=== PATIENT | male | born 1990 | race Caucasian/White ===

== ENCOUNTER 2023-02-06 12:25 | Outpatient (OUT) | payer OTHER, SELFPAY | END 2023-02-06 12:26 | disposition home or self-care (01) | LOC: LAB 12:29 | PROVIDERS: PCP Family Medicine; Visit Provider Family Medicine | DX: J01.90 Acute sinusitis, unspecified (principal) | CPT/HCPCS: 87070; 87150 ==

== ENCOUNTER 2024-11-17 07:45 | Outpatient (OUT) | payer OTHER, SELFPAY ==
--- OUTSIDE RECORDS SUMMARY | 2017-05-19 09:00 | XMS_ITS | Continuity of Care Document ---
Author Organization [employer] [facility] [place] [address] Phone Care Team Providers Care Extermination Supervisor Name Role Phone Washington Ayala MD Unavailable [...] Longer Active Procedures Procedure Date OFFICE/OUTPATIENT VISIT, [facility] Advance Directives Directive Yes / No Effective Date File Name No Information Encounters Encounter Description Practice Location Reason(s) For Visit Diagnoses Date Provider Providers Copied on Encounter OFFICE/OUTPAT IENT VISIT, [facility] [employer] [facility], [address], [place], [id number], tel:[phone] [facility] establishment (chief complaint) Acute recurrent pansinusitis 8 Jamie Delarosa. [address] [place], [address], [place]. tel:[phone] Referring Provider: Washington Castro, [address] [place], [address]. 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 Functional Status Date Functional Assessmen [...]
--- OUTSIDE RECORDS SUMMARY | 2024-11-15 07:15 | XMS_ITS ---
Author Organization [facility] [place] Address [address] [place] [address] Care Team Providers Care Insulating Machine Operator Name Role Phone Lucas Ledesma Primary Care Provider [phone] Allergies No Known Allergies REASON FOR VISIT Presents to office alone. Woke yesterday am with elbow being warm, swollen and painful, Establishedpatient but not seen in a few years Medications Medication SIG (Take, Route, Frequency, Duration) Notes Start Date End Date Status Cefdinir 300 MG 2 capsule Orally onc e a day for 10 days 11/15/2024 Active predniSONE 20 MG 3 tablets Orally Onc e a day for 5 days 11/15/2024 Active Doxycycline Monohydrate 100 MG 1 capsule Orally bid for 10 days 11/15/2024 Active Social History Tobacco Use: Social History Observation Description Date Details (start date - stop date) Never Smoker NA - NA Tobacco Control (Standard) Question Answer Notes Tobacco use: Nonsmoker AUDIT-C (Standard) Question Answer Notes Did you have a drink containing alcohol in the p ast year? No Points 0 Interpretation Negative Problems Problem Type SNOMED Code ICD Code Onset Dates Problem Status W/U Status Risk Notes Problem Bursitis (M71.9) Active confirmed Problem Well adult (093914758) Well adult (Z00.00) Active confirmed Vital Signs Weight 189.4 lbs 11/15/2024 Height 67 in 11/15/2024 Blood pressure systolic 118 mm Hg 11/16/19 25 Blood pressure diastolic 70 mm Hg 025 BMI 29.66 kg/m2 11/15/2024 Encounters Encounter Location Date Provider Diagnosis [facility] [address] [place] [address] 11/15/2024 Lucas Hopurnima Bursitis M71.9 and Well adult Z00.00 Assessments Encounter Date Diagnosis (ICD Code) Assessment Notes Treatment Notes Treatment Clinical Notes Section Notes 11/15/2024 Bursitis (ICD-10 - M71.9) 11/15/2024 Well adult (ICD-10 - Z00.00) Plan Of Treatment Medication Medication Name Sig Start Date Stop Date Notes Cefdinir 300 MG 2 capsule Orally onc e a day for 10 days 11/15/2024 predniSONE 20 MG 3 tablets Orally Onc e a day for 5 days 11/15/2024 Doxycycline Monohydrate 100 MG 1 capsule Orally bid for 10 days 11/15/2024 Pending Test Test Name Order Date HEMOGLOBIN A1C (GLYCO) 11/15/2024 INSULIN, TOTAL 11/15/2024 LIPID PANEL (CHOL/TRIG/HDL/LDL) 11/16/19 25 URIC ACID 11/15/2024 THYROID PANEL (T4/TSH/FREE T3) 5 CMP (COMP MET GASTELUM) w/eGFR CKD-EPI 2024 CBC WITH DIFF 11/15/2024 Progress Notes * MONICADarwDOB:1990 (34 yo M)Acc No.[id number]:11/15/2024 New Patient Patient: Haroon POLK Provider: Gloria Ledesma ([facility])MD :1990 A ge:34 Y S ex:Male Date:11/15/2024 Address:[address] [place], [place] [id number] Check In:11:17 AM ESTCheck O ut:12:04 PM EST Subjective: * Chief Complaints: * P resents to office alone. Woke yesterday am with elbow being warm, swollen and painfulEstablished patient but not seen in a few years * HPI: D epression Screening: PHQ-2 (2015 Edition) L ittle interest or pleasure in doing things??Not at all F eeling down, depressed, or hopeless? N ot at all T otal Score 0 no injry - works out alot - no repetitive and no injury. * Active Problem List M71.9 Bursitis Modified On:11/15/2024W/U Status:confirmed Z00.00 Well adult Modified On:11/15/2024W/U Status:confirmed * Medical History: * Surgical History: K nee scope (left) Inguinal hernia repair (right) * Hospitalization/Major Diagno stic Procedure: * Family History: F ather: alive. M other: alive. 4 sister(s) . . * Social History: T obacco Use: T obacco Control (Standard) T obacco use: N onsmoker D rug/Alcohol: A CAILIN-C (Standard) D id you have a drink containing alcohol in the past year? N o P oints 0 I nterpretation N egative * Medications: N one * Allergies: N .K.D.A.no[Allergies Verified] Objective: * Vitals: W t:189.4lbs, Ht: 67 in, BP:118/70mm Hg, BMI:29.66Index, Ht-cm: 170.18 cm, Wt-k.91 kg. * Examination: A bdomen Exam:: e lbow bursitis - red, warm - tender. Assessment: * Assessment: 1. B ursitis - M71.9 (Primary) 2 . W ell adult - Z00.00 Plan: * Treatment: 2. W ell adult L AB: HEMOGLOBIN A1C (GLYCO) (Collection Date & Time - 11/15/2024 12:02 PM) L AB: INSULIN, TOTAL (Collection Date & Time - 11/15/2024 12:02 PM) L AB: LIPID PANEL (CHOL/TRIG/HDL/LDL) (Collection Date & Time - 11/15/2024 12:02 PM) L AB: URIC ACID (Collection Date & Time - 11/15/2024 12:02 PM) L AB: THYROID PANEL (T4/TSH/FREE T3) (Collection Date & Time - 11/15/2024 12:02 PM) L AB: CMP (COMP MET GASTELUM) w/eGFR CKD-EPI (Collection Date & Time - 11/15/2024 12:02 PM) L AB: CBC WITH DIFF (Collection Date & Time - 11/15/2024 12:02 PM) * Procedure Codes: * * Sign off status: Completed Visit Status: C HK (Check Out) true * Provider: Gloria Ledesma ([facility])MD Date: 0 11/15/2024 Generated for Stephen gomez/Crista/Nachoitting on: 0 11/17/2024 07:50 AM EDT History and Physical Notes * HPI (History of Present Illness) Category Sub-Category Detail Notes Category Not es Depression Screening PHQ-2 (2015 Edition) Little interest or pleasure in doing things?: Not at all no injry - works out alot - no repetitive and no injury Feeling down, depressed, or hopeless?: N ot at all Total Score: 0 Examination Category Sub-Category Detail Notes Category Not es Abdomen Exam: elbow bursitis - red, warm - tender
--- OUTSIDE RECORDS SUMMARY | 2024-11-17 07:50 | XMS_ITS | Clinical Summary ---
Author Organization [facility] Address [address] [place], [place] [address] Care Team Providers Care Mussel Farmer Name Role Phone Unavailable Primary Care Provider Unavailabl e Social History Tobacco Use Types Packs/Day Years Used Date Smoking Tobacco: Never Assessed Sex and Gender Information Value Date Recorded Sex Assigned at Not on file Legal Sex Male 1:45 PM EDT Gender Identity Not on file Sexual Orientation Not on file Plan of Treatment Health Maintenance Due Date Last Done Comments Anxiety Screening 08/12/2007 Depression Screening 08/12/2007 HIV Screening 08/12/2007 Hepatitis C Screening 08/12/2007 DTaP,Tdap,Td Vaccine (1 - Tdap) 2008 Hepatitis B Vaccine (1 of 3 - 19+ 3-dose series) 08/11 Covid-19 Vaccine (2023- season) 2024 Lipid Screening 2024 Influenza Vaccine (#1) 2025 Insurance [facility] PPO
--- OUTSIDE RECORDS SUMMARY | 2024-11-17 07:50 | XMS_ITS | Patient Health Record ---
Author Organization [facility] Address [address] [place] [address] Care Team Providers Care Energy Trader Name Role Phone Hudson Coyne Unavailable [phone] Allergies No Known Allergies Reason For Referral No Information Medications Medication SIG (Take, Route, Frequency, Duration) Notes Start Date End Date Status None Active Social History Tobacco Use: Social History Observation Description Date Details (start date - stop date) Never Smoker NA - NA Smoking History Question Answer Notes Smoking Status NonSmoker Problems Problem Type SNOMED Code ICD Code Onset Dates Problem Status W/U Status Risk Notes Problem [id number] Left hand pain (M79.642) Active confirmed Problem [id number] Local infection of the skin and subcutaneous tissue, unspecified (L08.9) Active confirmed Problem [id number] Abrasion of le ft middle finger, initial encounter (S60.413A) Active confirmed Plan Of Treatment No Information Insurance Providers Payer Name Payer Address Payer Phone Subscriber Number Group Number Insured Name Patient Relationship to Insured Coverage Start Date Coverage End Date Medical [facility] Randell Irving [address] [place] [id number] VALERY ANDERSON Self - patient is the insured Medical (General) History Surgical History Surgery Date(Month/Year) Sports Hernia Repair 09/03/2015
--- OUTSIDE RECORDS SUMMARY | 2024-11-17 07:50 | XMS_ITS | Clinical Summary ---
Author Organization [facility] Address [address] [email or web address] [address] Care Team Providers Care Sheep Herder Name Role Phone Xavier Ledesma MD Primary Care Provider [phone] Allergies No known active allergies Medications amoxicillin-cla vulanate (AUGMENTIN) 875-125 MG per tablet 1 tablet Orally every 12 hrs for 10 day(s) 3 Active pseudoephedrine (SUDAFED CONGESTION) 30 MG tablet Take 2 tablets by mouth every 4 hours as needed for Congestion Active ibuprofen (ADVIL;MOTRIN) 800 MG tablet Take 1 tablet by mouth every 6 hours as needed for Pain Active Social History Tobacco Use Types Packs/Day Years Used Date Smoking Tobacco: Never Smokeless Tobacco: Never Tobacco Cessation:Counseling Given: Not Answered Alcohol Use Standard Drinks/Week Comments Never 0 (1 standard drink = 0.6 oz pur e alcohol) AUDIT-C Answer Date Recorded Q1: How often do you have a drink containing alcohol? Never 02/09/2023 Q2: How many drinks containi ng alcohol do you have on a typical day when you are drinking? Patient does not drink Q3: How often do you have si x or more drinks on one occasion? Never 02/09/2023 Interpersonal Safety Domain Source: IP Abuse Scr eening Answer Date Recorded How often does anyone, eduardo sorensen family and friends, physically hurt you? Not on file 02/09/2023 How often does anyone, eduardo sorensen family and friends, scream or curse at you? Not on file 02/09/2023 How often does anyone, eduardo sorensen family and friends, insult or talk down to you? Not on file 02/09/2023 How often does anyone, inclavtar sorensen family and friends, threaten you with harm? Not on file 02/09/2023 Read-Only, Retired: Physical Abuse Denies 02/09/2023 Read-Only, Retired: Verbal Abuse Denies 02/09/2023 Read-Only, Retired: Emotional abuse Denies 02/09/2023 Read-Only, Retired: Financial Abuse Denies 02/09/2023 Read-Only, Retired: Sexual abuse Denies 02/09/2023 Sex and Gender Information Value Date Recorded Sex Assigned at Not on file Legal Sex Male 5:07 PM EDT Gender Identity Not on file Sexual Orientation Not on file Last Filed Vital Signs Vital Sign Reading Time Taken Comments Blood Pressure 124/87 02/09/2023 4:30 PM EDT Pulse 92 02/09/2023 1:19 PM EDT Temperature 36.7 C (98 F) 02/09/2023 1:19 PM EDT Respiratory Rate 16 02/09/2023 1:19 PM EDT Oxygen Saturation 98% 02/09/2023 4:30 PM EDT Inhaled Oxygen Concentration - - Weight 77.1 kg (170 lb) 02/09/2023 1:19 PM EDT Height 170.2 cm (5' 7 ) 02/09/2023 1:19 PM EDT Body Mass Index 26.63 02/09/2023 1:19 PM EDT Plan of Treatment Health Maintenance Due Date Last Done Comments DTaP/Tdap/Td vaccine (6 - Tdap) 2000 01/27/1995, 08/16/1991, 03/30/1990, Additional history exists Depression Screen 2001 Varicella vaccine (1 of 2 - 13+ 2-dose series) 2002 HIV screen 2004 Hepatitis C screen 08/12/2007 Hepatitis B vaccine (1 of 3 - 19+ 3-dose series) 2008 COVID-19 Vaccine ( - 2023- season) 2024 Flu vaccine (#1) 12/10/2024 Hib vaccine Completed 11/16/1990 Polio vaccine Completed 01/27/1995, 10/1991, 1989, Additional history exists HPV vaccine Aged Out No longer eligi ble based on patient's age to complete this topic Hepatitis A vaccine Aged Out No longe r eligible based on patient's age to complete this topic Meningococcal (ACWY) vaccine Aged Out No longer eligible based on patient's age to complete this topic Meningococcal B vaccine Aged Out No l onger eligible based on patient's age to complete this topic Pneumococcal 0-49 years Vaccine Aged Out No longer eligible based on patient's age to complete this topic Insurance [employer] Care Teams Sheep Herder Relationship Specialty Start Date End Date Xavier Ledesma MD [address] [place] [address] PCP - General Family Medicine 08/31/20
--- OUTSIDE RECORDS SUMMARY | 2024-11-17 07:50 | XMS_ITS | Encounter Summary ---
Author Organization [facility] Address [address] [place] [address] Care Team Providers Care Routeman Name Role Phone Xavier Ledesma MD Primary Care Provider [phone] Reason for Referral * Imaging (Routine) - Closed Specialty Diagnoses / Procedures Referred By Contac t Referred To Contact Radiology Diagnoses Sports hernia, initial encounter Procedures MRI PELVIS WO CONTRAST Francis Rawls MD [address] [place] [address] Phone: tel: fax: Referral ID Status Reason Start Date Expiration Date Visits Re quested Visits Authorized [id number] Closed 08/16/2020 02/12/2021 1 1 Encounter Details Date Type Department Care Team (Latest Contact Info) Description 08/30/2020 Transcribe Orders [facility] [address] [place] [address] Francis Rawls MD [address] [place] [address] [place] [address] Sports hernia, initial encounter (Primary Dx) Social History Tobacco Use Types Packs/Day Years Used Date Smoking Tobacco: Never Assessed Sex and Gender Information Value Date Recorded Sex Assigned at Not on file Legal Sex Male 5:07 PM EDT Gender Identity Not on file Sexual Orientation Not on file documented as of this encounter Plan of Treatment Not on file documented as of this encounter Results * MRI PELVIS WO CONTRAST (09/12/2020 2:40 PM EDT) Anatomical Region Laterality Modality Pelvis, Hip Magnetic Resonan ce 09/12/2020 2:49 PM EDT Impressions 09/12/2020 10:18 PM EDT Mild thickening along the course of the right external oblique aponeurosis and anterior aspect of the inguinal canal proximal to its insertion on the rectus sheath. No associated edema. This likely reflects previous surgical intervention. No recurrent tear of the prepubic aponeurosis or abductor tendon origins. Normal appearance of the pubic symphysis. Narrative 09/12/2020 10:18 PM EDT EXAMINATION: MRI OF THE PELVIS WITHOUT CONTRAST, 09/12/2020 2:34 pm TECHNIQUE: Multiplanar multisequence MRI of the pelvis was performed without the administration of intravenous contrast. COMPARISON: None HISTORY: ORDERING SYSTEM PROVIDED HISTORY: Sports hernia, initial encounter FINDINGS: The pubic symphysis is normal in appearance. No subchondral change or osteophytosis. No joint effusion. The bilateral proximal adductor tendons are intact and normal in appearance. Normal insertion of the bilateral rectus abdominus muscles. There is mild thickening along the course of the right external oblique aponeurosis and anterior aspect of the inguinal canal. No associated edema. The bilateral proximal adductor and pectineus muscles are normal in appearance. The remaining visualized musculature is also within normal limits. No inguinal hernia. No inguinal or pelvic lymphadenopathy identified. The bilateral hips are normal in appearance. Mild right sacroiliac degenerative changes. The left sacroiliac joint is unremarkable. The visualized lower lumbar spine is unremarkable. No fracture or dislocation. No suspicious marrow space-occupying lesion. The soft tissue contents of the pelvis are unremarkable. The bilateral sciatic nerves are normal in appearance. No abnormal soft tissue mass or fluid collection. Procedure Note Kobi Whitley MD - 09/12/2020 EXAMINATION: MRI OF THE PELVIS WITHOUT CONTRAST, 09/12/2020 2:34 pm TECHNIQUE: Multiplanar multisequence MRI of the pelvis was performed without the administration of intravenous contrast. COMPARISON: None HISTORY: ORDERING SYSTEM PROVIDED HISTORY: Sports hernia, initial encounter FINDINGS: The pubic symphysis is normal in appearance. No subchondral change or osteophytosis. No joint effusion. The bilateral proximal adductortendons are intact and normal in appearance. Normal insertion of the bilateral rectus abdominus muscles. There is mild thickening along the course ofthe right external oblique aponeurosis and anterior aspect of the inguinalcanal. No associated edema. The bilateral proximal adductor and pectineusmuscles are normal in appearance. The remaining visualized musculature is also within normal limits. No inguinal hernia. No inguinal or pelvic lymphadenopathy identified. The bilateral hips are normal in appearance. Mild right sacroiliac degenerative changes. The left sacroiliac joint is unremarkable. The visualized lower lumbar spine is unremarkable. No fracture ordislocation. No suspicious marrow space-occupying lesion. The soft tissue contents of the pelvis are unremarkable. The bilateral sciatic nerves are normal in appearance. No abnormal soft tissue massor fluid collection. IMPRESSION: Mild thickening along the course of the right external obliqueaponeurosis and anterior aspect of the inguinal canal proximal to its insertion onthe rectus sheath. No associated edema. This likely reflects previoussurgical intervention. No recurrent tear of the prepubic aponeurosis or abductor tendon origins. Normal appearance of the pubic symphysis. Francis Rawls MD IMG MRI ORDERABLES Final Result documented in this encounter Visit Diagnoses Diagnosis Sports hernia, initial encounter- Primary Sports hernia, initial encounter documented in this encounter Care Teams Routeman Relationship Specialty Start Date End Date Xavier Ledesma MD [address] [place] [address] PCP - General Family Medicine 08/31/20 documented as of this encounter
--- OUTSIDE RECORDS SUMMARY | 2024-11-17 07:50 | XMS_ITS | Clinical Summary ---
Author Organization [facility] Address [address] [place] [address] [place] [address] Care Team Providers Care It Specialist Name Role Phone Xavier Ledesma MD Primary Care Provider [phone] Allergies No known active allergies Medications DULoxetine (Cymbalta) [address] Particles capsule DR Take 1 capsule by mouth daily as needed. 30 capsule 2 2 Active Additional Information Patient not taking.Reported on 04/29/2022 methylPREDNIsolo ne 4 MG Tab Therapy Pack tabletIndication s:Left knee pain, unspecified chronicity,Tear of medial meniscus of left knee, unspecified tear type, unspecified whether old or current tear, initial encounter follow package directions 21 tablet 2 Active hydroCODone-acet aminophen 5-325 MG tabletIndication s:S/P left knee arthroscopy 1-2 tabs PO q4-6 hours PRN pain 30 tablet 2 Active Active Problems No known active problems Social History Tobacco Use Types Packs/Day Years Used Date Smoking Tobacco: Never Smokeless Tobacco: Never Alcohol Use Standard Drinks/Week Comments Never 0 (1 standard drink = 0.6 oz pur e alcohol) Sex and Gender Information Value Date Recorded Sex Assigned at Not on file Legal Sex Male 1:25 PM EST Gender Identity Not on file Sexual Orientation Not on file Last Filed Vital Signs Vital Sign Reading Time Taken Comments Blood Pressure 144/73 05/02/2022 10:25 AM EST Pulse 99 05/02/2022 10:25 AM EST Temperature 37.6 C (99.7 F) 09/02/2022 1:13 PM EDT Respiratory Rate 16 05/02/2022 10:25 AM EST Oxygen Saturation 97% 05/02/2022 10:25 AM EST Inhaled Oxygen Concentration - - Weight 79.4 kg (175 lb) 09/02/2022 1:13 PM EDT Height 170.2 cm (5' 7 ) 09/02/2022 1:13 PM EDT Body Mass Index 27.41 09/02/2022 1:13 PM EDT Plan of Treatment Health Maintenance Due Date Last Done Comments HEPATITIS C VIRUS SCREENING 1989 HIV SCREENING DISCUSSION 2004 HEP B VACCINE (1 of 3 - 19+ 3-dose series) 2008 TDAP (ADULT) 2008 TETANUS 02/09/2014 02/10/2004 COVID-19 VACCINE (2023-2 5 season) 2024 INFLUENZA VACCINE (Season Ended) 2025 HPV VACCINE Aged Out No longer eligi ble based on patient's age to complete this topic PNEUMOCOCCAL VACCINE SERIES Aged Out No longer eligible based on patient's age to complete this topic Insurance MMO Care Teams It Specialist Relationship Specialty Start Date End Date Xavier Ledesma MD PCP - General Family Medicine 06/20/20
--- OUTSIDE RECORDS SUMMARY | 2024-11-17 07:50 | XMS_ITS | Clinical Summary ---
Author Organization [facility] Address [address] [place] [address] Care Team Providers Care Knife Blade Polisher Name Role Phone Xavier Ledesma MD Primary Care Provider [phone] Allergies No known active allergies Medications pseudoephedrine (Sudafed) 30 MG tablet Take 60 mg by mouth every 6 (six) hours if needed. Active cetirizine-pseudoep hedrine (ZyrTEC-D) 5-120 MG 12 hr tabletIndications:C hronic maxillary sinusitis Take 1 tablet by mouth in the morning and 1 tablet before bedtime. 60 tablet 11 3 Active loratadine (Claritin Reditabs) 10 MG disintegrating tablet Take 10 mg by mouth in the morning. 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 05/27/2023 Immunizations Immunization Administration Dates Next Due DTaP, Unspecified 01/27/1995, 2,03/30/1990,1989, 990 HiB, unspecified 11/16/1990 MMR 12/26/2004,11/16/1990 Polio, Unspecified 01/27/1995,08/16/1991, 990,1989 Tetanus toxoid, adsorbed 02/10/2004 Family History Medical History Relation Name Comments Heart disease Father Hypertension Father No Known Problems Mother Relation Name Status Comments Father Alive Mother Alive Social History Tobacco Use Types Packs/Day Years Used Date Smoking Tobacco: Never Smokeless Tobacco: Never Tobacco Cessation:Counseling Given: Not Answered Alcohol Use Standard Drinks/Week Comments Never 0 (1 standard drink = 0.6 oz pur e alcohol) Sex and Gender Information Value Date Recorded Sex Assigned at Not on file Legal Sex Male 8:25 PM EDT Gender Identity Not on file Sexual Orientation Not on file Last Filed Vital Signs Vital Sign Reading Time Taken Comments Blood Pressure 132/89 05/27/2023 10:15 AM EST Pulse - - Temperature - - Respiratory Rate - - Oxygen Saturation - - Inhaled Oxygen Concentration - - Weight 82.1 kg (181 lb) 05/27/2023 10:15 AM EST Height 170.2 cm (5' 7 ) 05/27/2023 10:15 AM EST Body Mass Index 28.35 05/27/2023 10:15 AM EST Plan of Treatment Not on file Insurance [employer] Care Teams Knife Blade Polisher Relationship Specialty Start Date End Date Xavier Ledesma MD PCP - General Family Medicine 02/10/23
--- OUTSIDE RECORDS SUMMARY | 2024-11-17 07:50 | XMS_ITS | Encounter Summary ---
Author Organization [facility] Address [address] [place] [address] Care Team Providers Care Oven Stripper Name Role Phone Xavier Ledesma MD Primary Care Provider [phone] Encounter Details Date Type Department Care Team (Late st Contact Info) Description 03/17/2023 Clinisync Result Encounter [facility] External Department Unsolicited Krystyna Lindsay MD [address] [facility] [address] [place] [address] Social History Tobacco Use Types Packs/Day Years [...] on file documented as of this encounter Procedures Procedure Name Priority Date/Time Associated Diagnosis Comments CT MAXILLOFACIAL W/O CONTRAST 03/17/2023 10:03 AM EST documented in this encounter Results * CT MAXILLOFACIAL W/O CONTRAST (03/17/2023 10:03 AM EST) Anatomical Region Laterality Modality Other 03/17/2023 10:0 3 AM EST Narrative 03/18/2023 9:01 AM EST Exam Date/Time: 03/17/2023 10:21 EST Reason for Exam: J32.4 Report IMPRESSION: THE PARANASAL SINUSES ARE WELL AERATED. EXAM: CT Maxillofacial w/o Contrast DATE: 03/17/2023 10:03 AM CLINICAL HISTORY: J32.4. COMPARISON: None available. TECHNIQUE: Multiple images axial images were obtained without contrast administration. 3-D sagittal and coronal reconstructions were performed. All CT scans at this facility use dose modulation, iterative reconstruction, and/or weight based dosing when appropriate to reduce radiation dose to as low as reasonably achievable. SINUS CT FINDINGS: The visualized intracranial portions are within normal limits. The orbits demonstrate no intra or extraconal lesions, the globes are intact. There is no fracture or subluxation. There are no lytic or sclerotic bone lesions. The frontal sinuses are well aerated. The ethmoid sinuses are within normal limits. The sphenoid sinuses are unremarkable. The maxillary sinuses are intact. The right ostiomeatal complex is patent but narrowed due to the deviation of the nasal septum. The left side is patent. There is severe deviation of nasal septum towards the right side with a small diffuse spur. There is no pneumatization of the turbinate bones. The visualized portions of the mastoid air cells and middle ear spaces are within normal limits. The soft tissues are within normal limits. Report Ordering Provider: Krystyna Lindsay FINAL REPORT Dictated: 03/18/2023 8:58 am Jacobo Krishna MD, V. Signed (Electronic Signature): 03/18/2023 8:58 am Signed by: Jacobo Krishna MD, V. Transcribed by: CHRIS Technologist: NISHANT Procedure Note Radiology, Radiologist, - 03/18/2023 Exam Date/Time: 03/17/2023 10:21 EST Reason for Exam: J32.4 Report IMPRESSION: THE PARANASAL SINUSES ARE WELL AERATED. EXAM: CT Maxillofacial w/o Contrast DATE: 03/17/2023 10:03 AM CLINICAL HISTORY: J32.4. COMPARISON: None available. TECHNIQUE: Multiple images axial images were obtained without contrast administration. 3-D sagittal and coronal reconstructions were performed. All CT scans at this facility use dose modulation, iterativereconstruction, and/or weight based dosing when appropriate to reduce radiation dose to as lowas reasonably achievable. SINUS CT FINDINGS: The visualized intracranial portions are within normal limits. The orbits demonstrate no intra or extraconal lesions, the globes areintact. There is no fracture or subluxation. There are no lytic or sclerotic bonelesions. The frontal sinuses are well aerated. The ethmoid sinuses are within normal limits. The sphenoid sinuses are unremarkable. The maxillary sinuses are intact. The right ostiomeatal complex is patent but narrowed due to the deviationof the nasal septum. The left side is patent. There is severe deviation of nasal septum towards the right side with asmall diffuse spur. There is no pneumatization of the turbinate bones. The visualized portions of the mastoid air cells and middle ear spaces arewithin normal limits. The soft tissues are within normal limits. Report Ordering Provider: Krystyna Lindsay FINAL REPORT Dictated: 03/18/2023 8:58 am Jacobo Krishna MD, V. Signed (Electronic Signature): 03/18/2023 8:58 am Signed by: Jacobo Krishna MD, V. Transcribed by: CHRIS Technologist: NISHANT Krystyna Lindsay MD [facility] Final Resul t documented in this encounter Visit Diagnoses Not on filedocumented in this encounter Care Teams Oven Stripper Relationship Specialty Start Date End Date Xavier Ledesma MD PCP - General Family Medicine 02/10/23 documented as of this encounter
--- OUTSIDE RECORDS SUMMARY | 2024-11-17 07:50 | XMS_ITS | Patient Health Record ---
Author Organization [facility] [place] Address [address] [place] [address] Care Team Providers Care Psychotherapist Counselor Name Role Phone Lucas Ledesma Primary Care Provider [phone] Allergies No Known Allergies Reason For Referral [...] Problem Status W/U Status Risk Notes Problem Well adult (236942558) Well adult (Z00.00) Active confirmed Problem Bursitis (M71.9) Active confirmed Vital Signs Blood pressure diastolic 70 mm Hg 11/15/2024 Height 67 in 11/15/2024 Blood pressure systolic 118 mm Hg 11/15/2024 Weight 189.4 lbs 11/15/2024 BMI 29.66 kg/m2 11/15/2024 Encounters Encounter Location Date Provider Diagnosis [facility] [address] [place] [address] 11/15/2024 Lucas Ledesma Bursitis M71.9 and Well adult Z00.00 Assessments Encounter Date Diagnosis (ICD Code) Assessment Notes Treatment Notes Treatment Clinical Notes Section Notes 11/15/2024 Bursitis (ICD-10 - M71.9) 11/15/2024 Well adult (ICD-10 - Z00.00) Plan Of Treatment Pending Test Test Name Order Date HEMOGLOBIN A1C (GLYCO) 11/15/2024 INSULIN, TOTAL 11/15/2024 LIPID PANEL (CHOL/TRIG/HDL/LDL) 11/16/19 25 URIC ACID 11/15/2024 THYROID PANEL (T4/TSH/FREE T3) 5 CMP (COMP MET GASTELUM) w/eGFR CKD-EPI 2024 CBC WITH DIFF 11/15/2024 Insurance Providers Payer Name Payer Address Payer Phone Subscriber Number Group Number Insured Name Patient Relationship to Insured Coverage Start Date Coverage End Date [facility] [address] [place], [place] [phone] [id number] Haroon Titus Self - patient is the insured Medical (General) History Surgical History Surgery Date(Month/Year) Inguinal hernia repair (right) Knee scope (left)
[2024-11-17 08:05] LABS: Hematocrit 39.4 % (42.0-54.0); Hemoglobin 14.2 g/dL (14.0-18.0); Immature Granulocytes Abs Auto 0.07 10^3/uL (0.00-0.03); Immature Granulocytes Pct Auto 0.5 % (0.0-0.5); Lymphocytes Absolute Auto 1.9 10^3/uL (1.2-3.8); Mean Corpuscular HGB Conc 36.0 g/dL (29.9-35.2); Mean Corpuscular Hemoglobin 30.3 pg (25.9-34.0); Mean Corpuscular Volume 84.0 fL (80.0-94.0); Platelet Count 332 10^3/uL (150-450); Red Blood Count 4.69 10^6/uL (4.70-6.10); White Blood Count 14.4 10^3/uL (4.0-11.0)
[2024-11-17 08:58] LABS: Alanine Aminotransferase 45 U/L (16-63); Albumin Globulin Ratio 1.3; Albumin Level 4.3 g/dL (3.4-5.0); Alkaline Phosphatase 59 U/L (46-116); Anion Gap 16.2; Aspartate Amino Transferase 36 U/L (15-37); Blood Urea Nitrogen 24.0 mg/dL (7.0-18.0); Calcium 9.2 mg/dL (8.5-10.1); Carbon Dioxide 27.2 mmol/L (21.0-32.0); Chloride 102 mmol/L (98-107); Cholesterol 176 mg/dL (<=200); Estimated GFR (African America >60 (>=60 mL/min/1.73m^2); Estimated GFR (Non-African Ame >60 (>=60 mL/min/1.73m^2); Free T3 2.96 pg/mL (2.18-3.98); Globulin 3.2 g/dL; Glucose 109 mg/dL (74-106); HDL Cholesterol 70 mg/dL (40-60); Potassium 4.4 mmol/L (3.5-5.1); Sodium 141 mmol/L (136-145); Thyroid Stimulating Hormone 1.131 uIU/mL (0.358-3.740); Total Protein 7.5 g/dL (6.4-8.2); Triglycerides 42 mg/dL (<=150); Uric Acid 6.4 mg/dL (3.5-7.2); VLDL CHOLESTEROL 8.4 mg/dL
== END 2024-11-17 07:46 | disposition home or self-care (01) ==
LOC: LAB 07:48
PROVIDERS: PCP Family Medicine; Visit Provider Family Medicine
DX: Z00.00 Encounter for general adult medical examination without abnormal findings (principal)
CPT/HCPCS: 36415; 80053; 80061; 83036; 83525; 84436; 84443; 84481; 84550; 85025

== ENCOUNTER 2024-11-25 11:29 | Outpatient (OUT) | payer OTHER, SELFPAY ==
--- OUTSIDE RECORDS SUMMARY | 2017-05-19 09:00 | XMS_ITS | Continuity of Care Document ---
Author Organization [facility] Address [place] [address] Phone Care Team Providers Care Hand I Blocker Name Role Phone Washington Ayala MD Unavailable Unavailable Allergies, Adverse Reactions, Alerts Substance Reaction Status Criticality No Known Allergies Active No Inform ation Medications Medication Instructions Dosage Effective Dates (start - stop) Status Comments fluticasone 50 mcg/actuation nasal spray,suspension inhale 2 sprays in each nostril every day - Active Zyrtec 10 mg tablet take 1 tablet by oral route every day 10 MG - Active azithromycin 250 mg tablet take 2 tablet by oral route every day for 1 day then 1 tablet (250 mg) by oral route once daily for 9 days - No Longer Active Procedures Procedure Date OFFICE/OUTPATIENT VISIT, [facility] Advance Directives Directive Yes / No Effective Date File Name No Information Encounters Encounter Description Practice Location Reason(s) For Visit Diagnoses Date Provider Providers Copied on Encounter OFFICE/OUTPAT IENT VISIT, [facility], [address], [place], [id number], tel:[phone] [facility] establishment (chief complaint) Acute recurrent pansinusitis [address] Jamie Delarosa. [address] [place], [address], [place]. tel:[phone] Referring Provider: Washington Castro, [address] [place], [address]. tel:[phone] Family History Family Member Type Diagnosis Age At Onset No Information Payers Payer name Insurance type Covered constitution party ID Authoriza tion(s) Blue Cross Blue Shield BL [id number] Social History Type Description Quantity Date Captured Comments Alcohol Use Details No Caffeine Use Details coffee Tobacco Use Status Never smoked tobacco 2017 Smoking Status Never smoker Non-Smoking Tobacco Use Details : No Details Available : No Details Available Sex Male Vital Signs Date / Time: Height Weight BMI Pulse Rate Blood Pressure Temperature Respiratory Rate Body Surface Area Head Circumference Head Circ. Percentile Wt./[place]. Percentile BMI percentile Pulse Ox Inhaled Ox 1:03 PM 67.00 in 81.647 kg (180.00 lbs) 28.1 9 kg/m eter (2) 73 /min 120/76 mm[Hg] 97.70 F 16 /min 96 % Chief Complaint And Reason For Visit From encounter dated '05/19/2017 13:00'. care establishment (chief complaint). Description: Has a sinus infection which is a yearly issue. Saw urgent care last week and sx measures were advised. Took a few leftover azithromycin and some better. Has been having sx for well over a week. Has a hx of chronic allergies and takes zyrtec year round. His biggest sx is pain and pressure behind his eyes and in his cheeks. Has nasal josé and d/c. The d/c is creamy. Has a slight cough. Advil cold and sinus helps some. 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 Reason For Referral Reason For Referral No Information Plan Of Treatment Date Type Action Status Goal Influenza vaccine. Due on Ja due Goal Tdap. Due on due History Of Present Illness Encounter Date Complaint History Of Prese nt Illness care establishment Has a sinus i nfection which is a yearly issue. Saw urgent care last week and sx measures were advised. Took a few leftover azithromycin and some better. Has been having sx for well over a week. Has a hx of chronic allergies and takes zyrtec year round. His biggest sx is pain and pressure behind his eyes and in his cheeks. Has nasal josé and d/c. The d/c is creamy. Has a slight cough. Advil cold and sinus helps some. 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 Functional Status Date Functional Assessmen t No Information Instructions Date Instruction Additional Infor reba Take the azithromyci n for 7-10 days. Use fluticasone nasal spray as directed daily and use afrin nasal spray for the next week. Follow up in 1 month Related to Acute recurrent pansinusitis Assessments Type Assessment Date assessment Acute recurrent pansinusitis May Patient Care Teams Name Effective Dates (start - stop) Status Members No Information
--- OUTSIDE RECORDS SUMMARY | 2024-11-17 14:56 | XMS_ITS ---
Author Organization [facility] [place] Address [address] [place] [address] Care Team Providers Care Machine Design Teacher Name Role Phone Lucas Ledesma Primary Care Provider REASON FOR VISIT lab results Problems Problem Type SNOMED Code ICD Code Onset Dates Problem Status W/U Status Risk Notes Problem Elevated WBC count (D72.829) Active confirmed Encounters Encounter Location Date Provider Diagnosis [facility] [address] [place] [address] 11/17/2024 Lucas Ledesma SOLA (acute kidney injury) N17.9 and Elevated WBC count D72.829 Assessments Encounter Date Diagnosis (ICD Code) Assessment Notes Treatment Notes Treatment Clinical Notes Section Notes 11/17/2024 SOLA (acute kidney injury) (ICD-10 - N17.9) 11/17/2024 Elevated WBC count (ICD-10 - D72.829) Plan Of Treatment Pending Test Test Name Order Date BMP w/GFR 11/17/2024 CBC AUTO DIFF 11/17/2024 Progress Notes * Shanda TITUSOB:1990 (34 yo M)Acc No.[id number]:11/17/2024 Patient: Haroon POLK :1990 A ge:34 Y S ex:Male Address:[address] [place] [address], [address] Subjective: * Chief Complaints: * L ab results * Medical History: * Surgical History: * Hospitalization/Major Diagno stic Procedure: * Medications: Objective: * Vitals: * Physical Examination: Assessment: * Assessment: 1. A KI (acute kidney injury) - N17.9 (Primary) 2 . E levated WBC count - D72.829 Plan: * Treatment: 2. E levated WBC count L AB: BMP w/GFR L AB: CBC AUTO DIFF * Procedure Codes: * true * Date: Generated for Stephen gomez/Crista/eThammadsmitting on: 0 11/25/2024 11:35 AM EDT
--- OUTSIDE RECORDS SUMMARY | 2024-11-22 06:45 | XMS_ITS ---
Author Organization [facility] [place] Address [address] [place] [address] Care Team Providers Care Minister Of Religion Name Role Phone Lucas Ledesma Primary Care Provider REASON FOR VISIT Presents to office alone for f/u on left elbow. Was starting to get better. Over the weekend started to swell and burn again. Does seem to have calmed down today Medications Medication SIG (Take, Route, Frequency, Duration) Notes Start Date End Date Status Cefdinir 300 MG 2 capsule Orally onc e a day for 10 days 11/15/2024 Active Doxycycline Monohydrate 100 MG 1 capsule Orally bid for 10 days 11/15/2024 Active predniSONE 10 MG 5 tabs per day for 3 days, 4 tabs per day for 3 ays, 3 tabs perday for 3 days, 2 tabs per day for 3 days, 1 tab a day for 3 days, 1/2 tab a day for 4 days Orally Once a day for 19 days 11/22/2024 Active Social History Tobacco Use: Social History Observation Description Date Details (start date - stop date) Never Smoker NA - NA Tobacco Control (Standard) Question Answer Notes Tobacco use: Nonsmoker AUDIT-C (Standard) Question Answer Notes Did you have a drink containing alcohol in the p ast year? No Points 0 Interpretation Negative Vital Signs Blood pressure systolic 118 mm Hg 11/23/19 25 Blood pressure diastolic 80 mm Hg 025 Height 67 in 11/22/2024 Weight 189.6 lbs 11/22/2024 BMI 29.69 kg/m2 11/22/2024 Encounters Encounter Location Date Provider Diagnosis [facility] [address] [place] [id number] 11/22/2024 Lucas Ledesma Bursitis M71.9 Assessments Encounter Date Diagnosis (ICD Code) Assessment Notes Treatment Notes Treatment Clinical Notes Section Notes 11/22/2024 Bursitis (ICD-10 - M71.9) Plan Of Treatment Medication Medication Name Sig Start Date Stop Date Notes predniSONE 10 MG 5 tabs per day for 3 days, 4 tabs per day for 3 ays, 3 tabs perday for 3 days, 2 tabs per day for 3 days, 1 tab a day for 3 days, 1/2 tab a day for 4 days Orally Once a day for 19 days 11/22/2024 Progress Notes * Dar TITUSwDOB:1990 (34 yo M)Acc No.[id number]:11/22/2024 Progress Note Patient: Haroon POLK Provider: Gloria Ledesma ([facility])MD :1990 A ge:34 Y S ex:Male Date:11/22/2024 Address:[address] [place], [place] [id number] Check In:10:47 AM ESTCheck O ut:11:41 AM EST Subjective: * Chief Complaints: * P resents to office alone for f/u on left elbow. Was starting to get better. Over the weekend started to swell and burn again. Does seem to have calmed down today * HPI: G eneral: was better - then yesterday much wowsre - warm - some better. * Active Problem List M71.9 Bursitis Modified On:11/15/2024W/U Status:confirmed Z00.00 Well adult Modified On:11/15/2024W/U Status:confirmed D72.829 Elevated WBC count Modified On:11/18/2024/U Status:confirmed * Medical History: * Surgical History: [...] 0 I nterpretation N egative * Medications: T akingCefdinir 300 MG Capsule 2 capsule Orally once a day Doxycycline Monohydrate 100 MG Capsule 1 capsule Orally bid Taking Cefdinir 300 MG Capsule 2 capsule Orally once a day Taking Doxycycline Monohydrate 100 MG Capsule 1 capsule Orally bid DiscontinuedpredniSONE 20 MG Tablet 3 tablets Orally Once a day Medication List reviewed and reconciled with the patientDiscontinued predniSONE 20 MG Tablet 3 tablets Orally Once a day Medication List reviewed and reconciled with the patient Objective: * Vitals: W t:189.6lbs, Ht: 67 in, BP:118/80mm Hg, BMI:29.69Index, Ht-cm: 170.18 cm, Wt-k kg. * Examination: A bdomen Exam:: L eft elbow iwth some swelling. Assessment: * Assessment: 1. B ursitis - M71.9 (Primary) Plan: * Treatment: * Procedure Codes: * Preventive Medicine: Screenings/Counseling: B NV ACTION PLAN Above Normal BMI Follow-up D ietary management education, guidance, and counseling See treatment section of progress note for complete details of management plan. * * Sign off status: Completed Visit Status: C HK (Check Out) true * Provider: Gloria Ledesma ([facility])MD Date: 0 11/22/2024 Generated for Stephen gomez/Crista/eTransmitting on: 11/25/2024 11:35 AM EDT History and Physical Notes * HPI (History of Present Illness) Category Sub-Category Detail Notes Category Not es General was better - th en yesterday much wowsre - warm - some better Examination Category Sub-Category Detail Notes Category Not es Abdomen Exam: Left elbow iwt h some swelling
--- OUTSIDE RECORDS SUMMARY | 2024-11-22 07:23 | XMS_ITS ---
Author Organization [facility] [place] Address [address] [place] [address] Care Team Providers Care Manager Of Development Name Role Phone Lucas Ledesma Primary Care Provider Reason For Referral Diagnosis 1 Bursitis (M71.9) Referral Organization [facility] Referring Provider First Name Lucas Referring Provider Last Name Callie Referring Provider [facility] icine Referred Provider Terell Lopez Referred Provider Specialty Orthopedic S urgery Referral Priority Routine REASON FOR VISIT Ortho Encounters Encounter Location Date Provider Diagnosis [facility] [address] [place] [address] 11/22/2024 Lucas Ledesma Bursitis M71.9 Assessments Encounter Date Diagnosis (ICD Code) Assessment Notes Treatment Notes Treatment Clinical Notes Section Notes 11/22/2024 Bursitis (ICD-10 - M71.9) Plan Of Treatment Referrals Referral Date Details 11/22/2024 11/22/2024Terell Progress Notes * Dar TITUSwDOB:1990 (34 yo M)Acc No.[id number]:11/22/2024 Patient: Dar POLKw :1990 A ge:34 Y S ex:Male Address:[address] [place] [address], [phone] Subjective: * Chief Complaints: * O rtho * Medical History: * Surgical History: * Hospitalization/Major Diagno stic Procedure: * Medications: Objective: * Vitals: * Physical Examination: Assessment: * Assessment: 1. B ursitis - M71.9 (Primary) Plan: * Treatment: * Procedure Codes: * true * Date: Generated for Stephen gomez/Crista/Nachoitting on: 0 11/25/2024 11:35 AM EDT Consultation Request Notes Referral Date Referring Provider Referred Provider Not es 11/22/2024 Lucas Ledesma Justin
--- OUTSIDE RECORDS SUMMARY | 2024-11-25 11:35 | XMS_ITS | Clinical Summary ---
Author Organization [facility] Address [address], [address] [place] [address] Care Team Providers Care Manufacturing Process Technician Name Role Phone Xavier Ledesma MD Primary Care Provider [phone] Allergies No known active allergies Medications amoxicillin-cla [...] does anyone, eduardo sorensen family and friends, threaten you with [...] 19+ 3-dose series) 2008 COVID-19 Vaccine ( season) 2024 Flu vaccine (#1) 12/10/2024 Hib [...] this topic Insurance [employer] Care Teams Manufacturing Process Technician Relationship Specialty Start Date End Date Xavier Ledesma MD [address] [place] [address] PCP - General Family Medicine 08/31/20
--- OUTSIDE RECORDS SUMMARY | 2024-11-25 11:35 | XMS_ITS | Clinical Summary ---
Author Organization [facility] Address [address] [place] [address] Care Team Providers Care Door Person Name Role Phone Xavier Ledesma MD Primary Care Provider [phone] Allergies No known active allergies Medications pseudoephedrine [...] on file Insurance [employer] Care Teams Door Person Relationship Specialty Start Date End Date Xavier Ledesma MD PCP - General Family Medicine 02/10/23
--- OUTSIDE RECORDS SUMMARY | 2024-11-25 11:35 | XMS_ITS | Clinical Summary ---
Author Organization [facility] Address [address] [place], [place] [id number] Care Team Providers Care Rotary Veneer Machine Operator Name Role Phone Unavailable Primary Care Provider [...] Screening 2024 Influenza Vaccine (#1) 2025 Insurance [facility] PPO
--- OUTSIDE RECORDS SUMMARY | 2024-11-25 11:35 | XMS_ITS | Patient Health Record ---
Author Organization [facility] Address [address] [place] [address] Care Team Providers Care Prevocational/Rehabilitation Counselor Name Role Phone Hudson Coyne Unavailable [phone] Allergies No Known Allergies Reason For Referral [...] Problem Status W/U Status Risk Notes Problem [id number] Left hand pain (M79.642) Active confirmed Problem [id number] Local infection of the skin and subcutaneous tissue, unspecified (L08.9) Active confirmed Problem [id number] Abrasion of le ft middle finger, initial encounter (S60.413A) Active confirmed Plan Of Treatment No Information Insurance Providers Payer Name Payer Address Payer Phone Subscriber Number Group Number Insured Name Patient Relationship to Insured Coverage Start Date Coverage End Date Medical [facility] Randell Irving [address] [place] [id number] VALERY ANDERSON Self - patient is the insured Medical (General) History Surgical History Surgery Date(Month/Year) Sports Hernia Repair 09/03/2015
--- OUTSIDE RECORDS SUMMARY | 2024-11-25 11:35 | XMS_ITS | Patient Health Record ---
Author Organization [facility] in [place] Address [address] [place] [address] Care Team Providers Care Back End Web Developer Name Role Phone Lucas Ledesma Primary Care Provider [phone] Allergies No Known Allergies Results Component Value Reference Range Notes CBC AUTO DIFF Reviewed date:11/17/2024 06:59:25 PM Interpretation: Performing Lab: Notes/Report: [facility] , White Blood Count 14.4 4.0-11.0 10 3/uL Red Blood Count 4.69 4.70-6.10 10 6/uL Hemoglobin 14.2 14.0-18.0 g/dL Hematocrit 39.4 42.0-54.0 % Mean Corpuscular Volume 84.0 80.0-94.0 fL Mean Corpuscular Hemoglobin 30.3 25.9-34.0 pg Mean Corpuscular HGB Conc 36.0 29.9-35.2 g/dL Red Cell Distribution Width 12.8 11.0-15.0 % Platelet Count 332 150-450 10 3/uL Mean Platelet Volume 10.2 9.5-13.5 fL Neutrophils Percent Auto 77.7 43.0-75.0 % Lymphocytes Percent Auto 13.3 20.5-60.0 % Monocytes Percent Auto 7.9 1.7-12.0 % Eosinophils Percent Auto 0.4 0.9-7.0 % Basophils Percent Auto 0.2 0.2-2.0 % Immature Granulocytes Pct Auto 0.5 0.0-0.5 % Neutrophils Absolute Auto 11.2 1.4-6.5 10 3/uL Lymphocytes Absolute Auto 1.9 1.2-3.8 10 3/uL Monocytes Absolute Auto 1.1 0.3-0.8 10 3/uL Eosinophils Absolute Auto 0.1 0.0-0.7 10 3/uL Basophils Absolute Auto 0.0 0.0-0.1 10 3/uL Immature Granulocytes Abs Auto 0.07 0.00-0.03 10 3/uL Performing Lab: see note - [facility] FREE T3 Reviewed date:11/17/2024 06:59:25 PM Interpretation: Performing Lab: Notes/Report: [facility] , Free T3 2.96 2.18-3.98 pg/mL Performing Lab: see note - [facility] GLYCOHEMOGLOBIN A1C Reviewed date:11/17/2024 06:59:25 PM Interpretation: Performing Lab: Notes/Report: [facility] , Glycohemoglobin A1C 5.1 4.5-6.2 % ADA THERAPEUTIC TARGET < 7.0 ADA RECOMMENDED LIMIT 4.0 - 6.0 ACTION SUGGESTED > 7.0 Estimated Average Glucose 100 Performing Lab: see note - [facility] INSULIN Reviewed date:11/18/2024 06:39:29 PM Interpretation: Performing Lab: Notes/Report: [facility] , Insulin 9.5 2.6-24.9 uIU/mL Assisted Living Executive Director: Bill Loya PhD, Phone: [phone] [address] [place], [place] [id number] Performed at: [facility] Performing Lab: see note - [facility] LIPID PROFILE Reviewed date:11/17/2024 06:59:25 PM Interpretation: Performing Lab: Notes/Report: [facility] , Triglycerides 42 <=150 mg/dL Cholesterol 176 <=200 mg/dL HDL Cholesterol 70 40-60 mg/dL > or =60 mg/dl - LOW CARDIOVASCULAR RISK <40 mg/dl - HIGH CARDIOVASCULAR RISK LDL Cholesterol Calculated 98.0 100-129 mg/dl NEAR OR ABOVE OPTIMAL >190 mg/dl VERY HIGH 160-189 mg/dl HIGH <100 mg/dl OPTIMAL 130-159 mg/dl BORDERLINE HIGH VLDL CHOLESTEROL 8.4 Chol HDL Ratio 2.5 7.1 - 11.0 MODERATE RISK 4.4 - 7.1 AVERAGE RISK 3.3 - 4.4 LOW RISK >11.0 HIGH RISK Performing Lab: see note ML - [facility] LB PROF 14(COMP METB) Reviewed date:11/17/2024 06:59:25 PM Interpretation: Performing Lab: Notes/Report: [facility] , Sodium 141 136-145 mmol/L Potassium 4.4 3.5-5.1 mmol/L Chloride 102 98-107 mmol/L Carbon Dioxide 27.2 21.0-32.0 mmol/L Anion Gap 16.2 Glucose 109 74-106 mg/dL Blood Urea Nitrogen 24.0 7.0-18.0 mg/dL Creatinine 1.33 0.70-1.30 mg/dL Estimated GFR ( Kathryn >60 >=60 mL/min/1.73m 2 Estimated GFR (Non- Ashley >60 >=60 mL/min/1.73m 2 BUN Creatinine Ratio 18.0 Calcium 9.2 8.5-10.1 mg/dL Bilirubin Total 0.8 0.2-1.0 mg/dL Aspartate Amino Transferase 36 15-37 U/L Alanine Aminotransferase 45 16-63 U/L Alkaline Phosphatase 59 46-116 U/L Total Protein 7.5 6.4-8.2 g/dL Albumin Level 4.3 3.4-5.0 g/dL Globulin 3.2 Albumin Globulin Ratio 1.3 Performing Lab: see note ML - [facility] LB T4 Reviewed date:11/17/2024 06:59:25 PM Interpretation: Performing Lab: Notes/Report: [facility] , T4 Thyroxine 8.00 4.50-12.10 ug/dL Performing Lab: see note ML - [facility] LB TSH Reviewed date:11/17/2024 06:59:25 PM Interpretation: Performing Lab: Notes/Report: [facility] , Thyroid Stimulating Hormone 1.131 0.358-3.740 u IU/mL Performing Lab: see note ML - [facility] LB URIC ACID SERUM Reviewed date:11/17/2024 06:59:25 PM Interpretation: Performing Lab: Notes/Report: [facility] , Uric Acid 6.4 3.5-7.2 mg/dL Performing Lab: see note - [facility] LB Reason For Referral Diagnosis 1 Bursitis (M71.9) Referral Organization [facility] Referring Provider First Name Lucas Referring Provider Last Name Callie Referring Provider Speciality [facility] elmo Referred Provider Terell Lopez Referred Provider Specialty Orthopedic S urgery Referral Priority Routine Medications Medication SIG (Take, Route, Frequency, Duration) [...] Problem Status W/U Status Risk Notes Problem Leukocytosis (198926217) Elevated WBC count (D72.829) Active confirmed Problem Well adult (977605442) Well adult (Z00.00) Active confirmed Problem Bursitis (05173239) Bursitis (M71.9) Active confirmed Vital Signs Blood pressure diastolic 80 mm Hg 11/22/2024 Height 67 in 11/22/2024 Blood pressure systolic 118 mm Hg 11/22/2024 Weight 189.6 lbs 11/22/2024 BMI 29.69 kg/m2 11/22/2024 Encounters Encounter Location Date Provider Diagnosis [facility] [address] [place] [address] 11/15/2024 Lucas Hoy Bursitis M71.9 and Well adult Z00.00 [facility] [address] [place] [address] 11/22/2024 Lucas Hoy Bursitis M71.9 [facility] [address] [place] [address] 11/17/2024 Lucas Hoy SOLA (acute kidney injury) N17.9 and Elevated WBC count D72.829 [place] [address] [place] [address] 11/22/2024 Lucas Ledesma Bursitis M71.9 Assessments Encounter Date Diagnosis (ICD Code) Assessment Notes Treatment Notes Treatment Clinical Notes Section Notes 11/15/2024 Bursitis (ICD-10 - M71.9) 11/15/2024 Well adult (ICD-10 - Z00.00) 11/22/2024 Bursitis (ICD-10 - M71.9) 11/17/2024 SOLA (acute kidney injury) (ICD-10 - N17.9) 11/17/2024 Elevated WBC count (ICD-10 - D72.829) 11/22/2024 Bursitis (ICD-10 - M71.9) Plan Of Treatment Pending Test Test Name Order Date HEMOGLOBIN A1C (GLYCO) 11/15/2024 INSULIN, TOTAL 11/15/2024 LIPID PANEL (CHOL/TRIG/HDL/LDL) 11/16/19 25 URIC ACID 11/15/2024 BMP w/GFR 11/17/2024 CBC AUTO DIFF 11/17/2024 THYROID PANEL (T4/TSH/FREE T3) CMP (COMP MET GASTELUM) w/eGFR CKD-EPI 2024 CBC WITH DIFF 11/15/2024 Insurance Providers Payer Name Payer Address Payer Phone Subscriber Number Group Number Insured Name Patient Relationship to Insured Coverage Start Date Coverage End Date MMO [address] [place], [place] [id number] Haroon Titus Self - patient is the insured Medical (General) History Surgical History Surgery Date(Month/Year) Knee scope (left) Inguinal hernia repair (right)
--- OUTSIDE RECORDS SUMMARY | 2024-11-25 11:35 | XMS_ITS | Encounter Summary ---
Author Organization [facility] Address [address], [address] [place] [address] Care Team Providers Care Coal Feeder Operator Name Role Phone Xavier Ledesma MD Primary Care Provider [phone] Reason for Referral * Imaging (Routine) - Closed Specialty Diagnoses / Procedures Referred By Contac t Referred To Contact Radiology Diagnoses Sports hernia, initial encounter Procedures MRI PELVIS WO CONTRAST Francis Rawls MD [address] [place] [address] [place] [address] Phone: tel: fax: Referral ID Status Reason Start Date Expiration Date Visits Re quested Visits Authorized [id number] Closed 08/16/2020 02/12/2021 1 1 Encounter Details Date Type Department Care Team (Latest Contact Info) Description 08/30/2020 Transcribe Orders [facility] [address] [place] [id number] Francis Rawls MD [address] [place] [address] [place] [address] Sports hernia, initial encounter (Primary [...] encounter documented in this encounter Care Teams Coal Feeder Operator Relationship Specialty Start Date End Date Xavier Ledesma MD [address] [place] [address] PCP - General Family Medicine 08/31/20 documented as of this encounter
--- OUTSIDE RECORDS SUMMARY | 2024-11-25 11:35 | XMS_ITS | Clinical Summary ---
Author Organization [facility] Address [address] [place] [address] [place] [address] Care Team Providers Care Rubber Mixer Name Role Phone Xavier Ledesma MD Primary Care Provider [phone] Allergies No known active allergies Medications DULoxetine [...] VACCINE (2023-2 5 season) 2024 INFLUENZA VACCINE (#1) 2025 HPV VACCINE Aged Out No longer eligi ble based on patient's age to complete this topic PNEUMOCOCCAL VACCINE SERIES Aged Out No longer eligible based on patient's age to complete this topic Insurance MMO Care Teams Rubber Mixer Relationship Specialty Start Date End Date Xavier Ledesma MD PCP - General Family Medicine 06/20/20
--- OUTSIDE RECORDS SUMMARY | 2024-11-25 11:35 | XMS_ITS | Encounter Summary ---
Author Organization [facility] Address [address] [place] [address] Care Team Providers Care Commercial Construction Project Manager Name Role Phone Xavier Ledesma MD Primary Care Provider [phone] Reason for Visit * Reason Onset Date Comments Insurance 07/11/2020 MRI Pelvis Reyna l Encounter Details Date Type Department Care Team (Late st Contact Info) Description 07/11/[facility] [address] [place] [address] Francis Rawls MD [address] [place] [phone] Insurance (MRI Pelvis Denial) Social History Tobacco Use Types Packs/Day Years Used Date Smoking Tobacco: Never Smokeless Tobacco: Never Sex and Gender Information Value Date Recorded Sex Assigned at Not on file Legal Sex Male 1:25 PM EST Gender Identity Not on file Sexual Orientation Not on file documented as of this encounter Miscellaneous Notes * Telephone Encounter - Brandy Hinds - 07/13/2020 12:15 PM EST Called patient to inform of MRI denial and to discuss next treatment options. No answer and voicemail was full. * Telephone Encounter - Brandy Hinds - 07/13/2020 12:15 PM EST No peer to peer. Will inform patient of denial. * Telephone Encounter - Lakisha Lopez - 07/11/2020 12:10 PM EST Insurance Denied MRI Pelvis due to no re-evaluation showing failed clinical improvement following a6-week trial (within 3 months) of provider-directed treatment. If you disagree with this decision, please call us at [phone], option #4. Reference Number [id number]. Please Advise documented in this encounter Plan of Treatment Not on file documented as of this encounter Visit Diagnoses Not on filedocumented in this encounter Care Teams Commercial Construction Project Manager Relationship Specialty Start Date End Date Xavier Ledesma MD PCP - General Family Medicine 06/20/20 documented as of this encounter
--- OUTSIDE RECORDS SUMMARY | 2024-11-25 11:35 | XMS_ITS | Encounter Summary ---
Author Organization [facility] Address [address] [place] [address] Care Team Providers Care Senior Application Software Engineer Name Role Phone Xavier Ledesma MD Primary Care Provider [phone] Encounter Details Date Type Department Care Team (Late st Contact Info) Description 03/17/2023 Clinisync Result Encounter [facility] External Department Unsolicited Krystyna Lindsay MD [address] [facility] [email or web address] [address] [place] [address] Social History Tobacco Use Types Packs/Day Years [...] on filedocumented in this encounter Care Teams Senior Application Software Engineer Relationship Specialty Start Date End Date Xavier Ledesma MD PCP - General Family Medicine 02/10/23 documented as of this encounter
[2024-11-25 12:01] LABS: Hematocrit 45.0 % (42.0-54.0); Hemoglobin 15.5 g/dL (14.0-18.0); Immature Granulocytes Abs Auto 0.07 10^3/uL (0.00-0.03); Immature Granulocytes Pct Auto 0.9 % (0.0-0.5); Lymphocytes Absolute Auto 2.5 10^3/uL (1.2-3.8); Mean Corpuscular HGB Conc 34.4 g/dL (29.9-35.2); Mean Corpuscular Hemoglobin 30.0 pg (25.9-34.0); Mean Corpuscular Volume 87.0 fL (80.0-94.0); Platelet Count 330 10^3/uL (150-450); Red Blood Count 5.17 10^6/uL (4.70-6.10); White Blood Count 7.4 10^3/uL (4.0-11.0)
[2024-11-25 12:10] LABS: Anion Gap 10.3; Blood Urea Nitrogen 17.0 mg/dL (7.0-18.0); Calcium 9.4 mg/dL (8.5-10.1); Carbon Dioxide 30.4 mmol/L (21.0-32.0); Chloride 100 mmol/L (98-107); Estimated GFR (African America >60 (>=60 mL/min/1.73m^2); Estimated GFR (Non-African Ame 58 (>=60 mL/min/1.73m^2); Glucose 97 mg/dL (74-106); Potassium 4.7 mmol/L (3.5-5.1); Sodium 136 mmol/L (136-145)
== END 2024-11-25 11:30 | disposition home or self-care (01) ==
LOC: LAB 11:31
PROVIDERS: PCP Family Medicine; Visit Provider Family Medicine
DX: N17.9 Acute kidney failure, unspecified (principal); D72.829 Elevated white blood cell count, unspecified
CPT/HCPCS: 36415; 80048; 85025